=== PATIENT | female | born 1975 | race Two or more races ===

== ENCOUNTER 2019-04-19 13:18 | Outpatient (CLI) | payer OTHER | END 2019-04-19 13:36 | disposition home or self-care (01) | LOC: MAMO-SONO 13:18 | DX: Z12.31 Encounter for screening mammogram for malignant neoplasm of breast (principal); Z87.898 Personal history of other specified conditions; N60.11 Diffuse cystic mastopathy of right breast; N60.12 Diffuse cystic mastopathy of left breast ==

== ENCOUNTER → 2019-04-29 | Outpatient (CLI) | payer OTHER | END | disposition home or self-care (01) | LOC: EDBD 10:00 → NUCLEAR 10:00 | DX: M81.0 Age-related osteoporosis without current pathological fracture (principal) ==